=== PATIENT | female | born 1935 | race Caucasian/White ===

== ENCOUNTER 2017-04-05 09:55 | Emergency (ER) | payer MEDICARE, OTHER ==
[~2017-04-05] VITALS: Ht 162.6 cm; Wt 58.6 kg
[2017-04-05 10:03] VITALS: BP 164/78; PULSE 90; RESP 18; O2SAT 98
[2017-04-05] MEDS ORDERED: HYDROmorphone 0.5 mg/0.5 mL iSecure Syringe IVPUSH PRN (10:15)
[2017-04-05] MEDS ORDERED: Ondansetron 2 mg/mL 2 mL Inj IVPUSH ONE (10:15)
[2017-04-05] MEDS ORDERED: 0.9% Sodium Chloride 1,000 ML IV ONE (10:15)
--- NOTE | 2017-04-05 10:17 | ED.REPORT ---
HPI-General Illness Date of Service Apr 05, 2017 ED Provider: Kayden Barraza MD Pt is a generally healthy 81 y/o female w/ a hx of DM presenting to the ED with her daughter c/o intermittent diffuse abdominal pressure onset 1 month ago. She c/o associated mild nausea. There are no exacerbating or relieving factors. She has been constipated lately and has tried stool softeners and Miralax without relief. Pt denies vomiting, CP, SOB, GONG, fever, chills, focal weakness, dysuria , bloody stools, melena. The patient saw her PCP on 03/20 at which time she had a CT scan as below. She drinks very little alcohol. Pt denies drug use. 03/20/17 CT abd/pelvis interpretation as below: 1. No definite acute abnormality within the abdomen or pelvis. 2. Perirectal soft tissue thickening is concerning for anorectal proctitis. Please correlate clinically. No bowel obstruction. 3. Small hiatal hernia. 4. Hypodense lesion within the medial segment of the left hepatic lobe adjacent to the falciform ligament may represent a focal area of fatty infiltration. However, a hemangioma or other lesion cannot be completely excluded. Please consider a contrast enhanced MRI of the liver for better characterization. 5. Nonspecific prominence of the left ureter without a ureteral calculus or significant hydronephrosis. 6. Multilevel degenerative changes of the imaged spine and hips. Nursing Notes Stated Complaint: ABDOMINAL DISCOMFORT Chief Complaint: Female Abdominal Pain Nursing Notes Reviewed: Yes Allergies: Coded Allergies: codeine (Verified Allergy, Unknown, 01/27/14) Scheduled Ciprofloxacin (Cipro) 250 Mg Tablet 250 MG PO BID General Time Seen by MD: 10:14 Chief Complaint Abdominal pain Hx Obtained From: Patient Arrived By: Walk-in Sudden in Onset?: No Onset Occurred: More than a week ago... (1 month) Symptom Duration: Intermittent Location: : Abdomen Quality: Pressure Severity: Current: Moderate Severity: Maximum: Moderate Past Medical History Past Medical History Diabetes Past Surgical History Hysterectomy Cholecystectomy Smoking History Former Smoker Social History Alcohol Use: "Social" Drug Use: Denies drug use Ambulatory Status Independent Review of Systems Full Review of Systems Constitutional: Denies: Chills, Fever Respiratory: Denies: Non-productive cough, Shortness of breath Cardiovascular: Denies: Chest pain, Dyspnea on exertion GI: Reports: Abdominal pain, Constipation, Nausea, Denies: Bloody/tarry stool, Melena, Vomiting Neurologic: Denies: Headache Complete sys rev & neg: except as marked. Physical Exam Nursing note and vitals reviewed. Constitutional: Well-developed, well-nourished. Not diaphoretic. Well appearing. Head: Normocephalic and atraumatic. Mouth/Throat: Oropharynx is clear and moist. No oropharyngeal exudate. Eyes: EOM are normal. Pupils are equal, round, and reactive to light. Neck: Supple, no tracheal deviation. Cardiovascular: Normal rate, regular rhythm. Equal and intact distal pulses throughout. Pulmonary/Chest: Effort normal and breath sounds normal. No respiratory distress. Abdominal: Soft. No distension. There is no tenderness, rebound, or guarding. Bowel sounds present. Musculoskeletal: Range of motion grossly intact, moving all extremities. Neurological: AOx3. Grossly nonfocal exam. Strength and sensation intact and equal to bilateral upper and lower extremities. Skin: Warm and dry, no pallor appreciated. Psychiatric: Appropriate mood and affect. Behavior appears normal. Vital Signs Vital Signs Date Time Temp Pulse Resp B/P Pulse Ox O2 Delivery O2 Flow Rate FiO2 04/05/17 13:12 80 20 143/60 97 Room Air 04/05/17 12:27 80 20 136/51 97 Room Air 04/05/17 11:00 36 82 15 156/61 98 Room Air 04/05/17 10:03 36.6 90 18 164/78 98 Initial VS: Reviewed, Vital signs abnormal Interpretation & Diagnostics Lab Results Interpretation Result Diagram: 04/05/17 1015 04/05/17 1015 Test 04/05/17 10:15 04/05/17 11:38 White Blood Count 7.4th/mm3 (3.8-10.1) Red Blood Count 4.53mil/mm3 (3.90-5.20) Hemoglobin 13.7g/dL (12.0-15.6) Hematocrit 39.9% (35.0-46.0) Mean Corpuscular Volume 88.1fL (81-100) Mean Corpuscular Hemoglobin 30.2pg (27.0-35.0) Mean Corpuscular Hemoglobin Concent 34.3% (32.0-37.0) Red Cell Distribution Width 12.9% (12.3-15.4) Platelet Count 273bil/L (150-400) Neutrophils (%) (Auto) 68.2% (40-74) Lymphocytes (%) (Auto) 22.3% (14-46) Monocytes (%) (Auto) 7.8% (4-12) Eosinophils (%) (Auto) 0.9% (0-5) Basophils (%) (Auto) 0.7% (0-3) Prothrombin Time 10.4sec (8.1-12.5) Prothromb Time International Ratio 0.97ratio Sodium Level 136mEq/L (134-144) Potassium Level 4.0mEq/L (3.5-5.2) Chloride Level 100mEq/L (97-108) Carbon Dioxide Level 23mmol/L (18-29) Blood Urea Nitrogen 14mg/dL (8-27) Creatinine 0.59mg/dL (0.57-1.00) Estimat Glomerular Filtration Rate 139mL/min (>59) Glucose Level 153mg/dL (60-99) Lactic Acid Level 1.9mmol/L (0.4-2.0) Calcium Level 9.6mg/dL (8.5-10.1) Magnesium Level 1.8mg/dL (1.6-2.6) Total Bilirubin 0.3mg/dL (0.0-1.2) Aspartate Amino Transf (AST/SGOT) 16U/L (0-50) Alanine Aminotransferase (ALT/SGPT) 13U/L (0-32) Alkaline Phosphatase 54U/L (25-165) Total Protein 7.7g/dL (6.4-8.4) Albumin 4.3g/dL (3.4-5.0) Lipase 165U/L (13-60) Urine Color Straw (YELLOW) Urine Appearance Hazy (CLEAR,HAZY) Urine pH 5.0 (5.0-8.0) Urine Specific [place] 1.004 (1.003-1.035) Urine Protein Negativemg/dL (NEG,TRACE) Urine Glucose (UA) Negativemg/dL (NEGATIVE) Urine Ketones Negativemg/dL (NEGATIVE) Urine Occult Blood Trace (NEGATIVE) Urine Nitrite Negative (NEGATIVE) Urine Bilirubin Negative (NEGATIVE) Urine Urobilinogen Normalmg/dL (NORMAL) Urine Leukocyte Esterase Trace (NEGATIVE) Urine RBC 0-2/hpf (0-2) Urine WBC 6-10/hpf (0-5) Urine Epithelial Cells Few/hpf (NONE-MOD) Urine Crystals None seen (NONE SEEN) Urine Bacteria Few/hpf (NONE-FEW) Urine Hyaline Casts None/lpf (NONE) Urine Granular Casts None seen (NONE SEEN) Urine Waxy Casts None seen (NONE SEEN) Urine Red Blood Cell Casts None seen (NONE SEEN) Urine White Blood Cell Casts None seen (NONE SEEN) Urine Mucus None seen (None Seen) Urine Trichomonas None seen (NONE SEEN) Urine Yeast None (NONE SEEN) Urinalysis Comment None Urine Culture Reflexed Indicated ECG Interpretation ECG Interpretation: Sinus rhythm rate 81 LBBB No change from EKG in 2013 Time: 12:12 Interpreted by: ED physician CT Abd / Pelvis Interpretation IMPRESSION: 1. Minimal appearance of scattered small bowel thickening as above. Overall appearance is nonspecific and could be related to mild enteritis. 2. Decrease, yet persistent appearance of perirectal/anorectal soft tissue thickening, possibly related to improving infection/inflammation. Dictated by: Cate Cannon M.D. on 04/05/2017 at 12:32 Approved by: Cate Cannon M.D. on 04/05/2017 at 12:36 Study type: Abdominal CT IV contrast, Abdom CT oral contrast Interpretation / Wet Read by: Interpret - Radiologist Re-Eval/Medical Decision Med Decision/Clinical Course 81-year-old female presenting to the ED for evaluation of abdominal discomfort over the past month. She states that it was persistent and mildly worse today, so she decided to come into the emergency department. She is very well- appearing. A repeat CT scan was obtained today, which demonstrates some nonspecific scattered small bowel wall thickening that could be related to a mild enteritis, as well as an improving proctitis compared to previously. She has no abdominal tenderness whatsoever on exam. No distention. CBC and CMP grossly within normal limits with the exception of a lipase of 165. This is technically not greater than 3 times the normal limit that would suggest a significant pancreatitis that would require hospitalization, and the patient has no epigastric tenderness to palpation, nor any findings on CT scan to account for this. I discussed admission versus discharge home with very close return precautions and reevaluation tomorrow. Patient would like to opt for the latter. She does have what appears to be a mild urinary tract infection and I will treat this. Very careful return precautions were discussed and the patient was agreeable to the plan as stated, no further questions. Time of Eval: 13:03 Re-Evaluation/Progress Note: Pt rechecked. Discussed admission vs discharge. She chooses to be discharged. Pt understands and agrees with plan for discharge. F/U instructions and RTER warnings given. All questions addressed. Counseled Regarding: Diagnosis, Lab results, Need for follow-up, When/why to return to ED Discharge & Departure Primary Impression: Pancreatitis Chronicity: acute Pancreatitis type: unspecified pancreatitis type Acute pancreatitis complication: unspecified Qualified Code: K85.90 - Acute pancreatitis without necrosis or infection, unspecified Additional Impressions: Abdominal pressure Constipation Constipation type: unspecified constipation type Qualified Code: K59.00 - Constipation, unspecified UTI (urinary tract infection) Urinary tract infection type: site unspecified Hematuria presence: without hematuria Qualified Code: N39.0 - Urinary tract infection, site not specified Disposition: Home Discharge Condition All VS Reviewed: Yes Condition: Stable Patient Instructions: Pancreatitis (ED) Additional Instructions: Thank you for seeking care at the emergency room. It is difficult for us to make definitive diagnoses in the ED but we believe that you are experiencing abdominal discomfort which may be caused by mild pancreatitis or constipation. Our primary goal today in the Emergency Department was to evaluate you for any life-threatening conditions. Your evaluation was reassuring. However, as discussed, the blood marker for pancreatitis (lipase) was mildly elevated today. Since you have no pain on your exam and it's only mildly elevated, it seems reasonable to have you go home today, as we discussed. I would like you to follow up with your regular doctor tomorrow. As discussed with your regular doctor, it is ok to begin taking Miralax 3 times daily for now. You should follow-up with your primary doctor in the next day. You should return to the Emergency Department immediately if you develop worsening pain, fevers, vomiting, shortness of breath, chest pain, lightheadedness, dark or black stools, blood in the stool, weakness or any other concerning signs or symptoms. Thank you for letting us partake in your care today. Referrals: Driss Douglass MD (PCP) Scribe Attestation Portions of this note were transcribed by Dany Damon. I, Dr. Barraza personally performed the history, physical exam and medical decision-making; I reviewed and confirmed the accuracy of the information in the transcribed note. Signed by Niall Del Rio, 04/05/17 - 1200 copies to: Driss Douglass MD, William B MD Apr 05, 2017 10:17 DANY DAMON Apr 05, 2017 11:31
[2017-04-05 11:00] VITALS: BP 156/61; PULSE 82; RESP 15; O2SAT 98
[2017-04-05 11:06] LABS: BASOPHILS % (AUTO) 0.7 % (0-3); EOSINOPHILS % (AUTO) 0.9 % (0-5); MONOCYTES % (AUTO) 7.8 % (4-12); Mean Corpuscular Hemoglobin 30.2 pg (27.0-35.0); Mean Corpuscular Volume 88.1 fL (81-100); NEUTROPHILS % (AUTO) 68.2 % (40-74); Platelet Count 273 bil/L (150-400)
[2017-04-05 11:18] LABS: INR 0.97 ratio
[2017-04-05 11:28] LABS: Magnesium 1.8 mg/dL (1.6-2.6)
[2017-04-05 12:18] LABS: APPEARANCE,URINE HAZY (CLEAR,HAZY); COLOR,URINE STRAW (YELLOW); OCCULT BLOOD,URINE TRACE (NEGATIVE); UROBILINOGEN,URINE NORMAL (NORMAL)
[2017-04-05 12:27] VITALS: BP 136/51; PULSE 80; RESP 20; O2SAT 97
--- NOTE | 2017-04-05 12:38 | DRSVH ---
PROCEDURE: CT ABDOMEN AND PELVIS WITH CONTRAST ([id number]) INDICATIONS: worsening abd pain; eval change, other abnl TECHNIQUE: After the administration of oral and intravenous contrast, 5 mm thick sections acquired from the diap hragms to the symphysis. 5 mm thick coronal and sagittal reformats were performed. For radiation do se reduction, the following was used: automated exposure control, adjustment of mA and/or kV accordi ng to patient size. COMPARISON: [facility], CT, CT ABD PELVIS W CON, 03/20/2017, 11:21. FINDINGS: Image quality: Excellent. ABDOMEN: Lung bases: Lung bases are clear. Heart size is normal. Solid organs: Liver is mildly enlarged with steatosis. Previous identified hepatic focus of low atte nuation is unchanged. normal in size and enhancement. Gallbladder is not visualized. Biliary system is non-dilated. Pancreas enhances normally. No adrenal nodules. Kidneys are normal in size and en hancement, without hydronephrosis. Peritoneum and bowel: Stomach, small bowel, and colon loops are nonobstructed. There is minimal appe arance of scattered small bowel thickening, minimally more prominent when compared to prior exam. No free fluid or free air. The previously noted perirectal soft tissue thickening at the anal rectal reg ion remains prominent, although markedly decreased compared to prior exam. Nodes and vessels: No retroperitoneal or mesenteric adenopathy. Aorta and inferior vena cava are no rmal in caliber. Miscellaneous: No ventral hernias. PELVIS: Genitourinary: Bladder wall thickness is normal. Miscellaneous: No inguinal hernias or adenopathy. Bones: No suspicious bony lesions. No vertebral body compression fractures. IMPRESSION: 1. Minimal appearance of scattered small bowel thickening as above. Overall appearance is nonspecific and could be related to mild enteritis. 2. Decrease, yet persistent appearance of perirectal/anorectal soft tissue thickening, possibly relat ed to improving infection/inflammation. Dictated by: Cate Cannon M.D. on 04/05/2017 at 12:32 Approved by: Cate Cannon M.D. on 04/05/2017 at 12:36
[2017-04-05 13:12] VITALS: BP 143/60; PULSE 80; RESP 20; O2SAT 97
[2017-04-05] MEDS ORDERED: CIPR-232 PO (13:22)
== END 2017-04-05 13:19 | disposition home or self-care (01) ==
LOC: SED 09:55
DX: K85.90 Acute pancreatitis without necrosis or infection, unspecified (principal); K59.00 Constipation, unspecified; N39.0 Urinary tract infection, site not specified; E11.9 Type 2 diabetes mellitus without complications; Z87.891 Personal history of nicotine dependence; Z88.5 Allergy status to narcotic agent
CPT/HCPCS: 36415; 74177; 80053; 81000; 83605; 83690; 83735; 85025; 85610; 87086; 87088; 93005; 96360; 99285; J7030; Q9967

== ENCOUNTER 2017-05-05 07:00 | Day surgery (SDC) | payer MEDICARE, OTHER ==
[~2017-05-05] VITALS: Ht 157.5 cm; Wt 58.5 kg
[~2017-05-05 07:00] MED LIST: ASPI-973 PO; CHOL400T PO; DICY10CA56 PO; ESTR42.52 VAGINAL; LEVO50TA6 PO; Lactated Ringer's 1,000 ML IV ONE; METF500T4 PO; MULT-1018 PO; NYST15CR TP; OMEG500C PO; PROP10TA8 PO
[2017-05-05] MEDS ORDERED: Propofol 10,000 mCg/mL 20 mL Inj ONE (07:01)
[2017-05-05] MEDS ORDERED: fentaNYL-PF 50 mCg/mL 2 mL Inj ONE (07:01)
[2017-05-05] MEDS ORDERED: Lactated Ringer's 1,000 ML IV SCH (07:41)
[2017-05-05] MEDS ORDERED: Ondansetron 2 mg/mL 2 mL Inj IVPUSH PRN (07:45)
[2017-05-05] MEDS ORDERED: MetoCLOpramide 5 mg/mL 2 mL Inj IVPUSH PRN (07:45)
[2017-05-05 07:46] VITALS: BP 136/65; PULSE 73; RESP 15; O2SAT 96
--- NOTE | 2017-05-05 07:56 | PCM.HPANE ---
Patient Data Surgeon Admitting Provider: Attending Provider:Praveen Castillo MD Primary Care Physician:Driss Douglass MD Other Provider:Paulette Guilleningham Anesthesia Reason for Visit Abdnoraml Abdominal Ct, Epigastric Pain Ht/WT & BMI Body Mass Index Allergies Coded Allergies: codeine (Verified Allergy, Intermediate, Nausea, 05/05/17) Past Anesthesia History Anesthesia History: Denies:: Abnormal Airway, Anesthesia Reactions, Difficult Intubation, Fam Anesthesia Reaction, Fam Malignant Hypertherm, Malignant Hyperthermia Diabetes History Hx Diabetes?: Yes (NIDDM) Medications Reported Medications Cholecalciferol (Vitamin D3) (Vitamin D3)400 Unit Eftlxp209 Unit PO BID 05/01/17 Propranolol HCl 10 Mg Pttcsf78 Mg PO DAILY 90 Days Ref 0 05/01/17 Nystatin/Triamcin (Nystatin-Triamcinolone Cream)15 Gm Cream..g.15 Gm TP BID 05/01/17 Multivitamin (Multi Vitamin Daily)1 Each Tablet1 Each PO DAILY 30 Days Ref 0 05/01/17 Metformin 500 Mg Niaixc683 Mg PO BID Ref 0 05/01/17 [place]-3 Fatty Acids (Fish Oil)500 Mg Capsule.dr500 Mg PO BID 05/01/17 Estradiol (Estrace)42.5 Gm Cream.appl1 G VAGINAL UD #1 TUBE Ref 0 05/01/17 Aspirin 81 Mg Hknujy86 Mg PO DAILY Ref 0 05/01/17 Discontinued Reported Medications Levothyroxine 50 Mcg Yzfsil51 Mcg PO DAILY Ref 0 05/01/17 Dicyclomine (Bentyl)10 Mg Twdpkvi83 Mg PO TID 05/01/17 Metformin 850 Mg Yztbsf429 Mg PO BID Ref 0 05/01/17 Discontinued Scripts Ciprofloxacin (Cipro)250 Mg Ghidst131 Mg PO BID #6 TABLET Ref 0 Prov:Kayden Barraza MD 04/05/17 History History of ENT Problems?: No HEENT History: Denies:: Abnormal Airway Cataracts Difficult Intubation Dysphagia Glaucoma Hearing Problem Sinus Problem TMJ Denture Type: None Teeth Condition: Within Normal Limits Hx of Heart Problems?: No Cardiovascular History: Denies:: Congestive Heart Failure Hx of Respiratory Problem?: No Respiratory History: Denies:: Tuberculosis Hx Neurologic Problems?: No Hx of GI Problems?: Yes Hx of Problems?: No Hx Musculoskeletal Problems?: No Hx of Psycho/Social Problems?: No Hx Surgeries?: Yes Hx Any Other Health Problems?: No Hx Diabetes: Yes (NIDDM) Hx Alcohol Use: NoHx Substance Use: No Smoking Status: Former Smoker Have You Smoked inLast 12 mo: No Stop/Bang Risk Assessment Category Category 1A: Patient has history of documented sleep apnea, and HAS NOT received any narcotic, sedative or anesthesia administration during this stay. Category 1B: Patient has history of documented sleep apnea, and HAS received any narcotic , sedative or anesthesia administration during this stay Category 2: Patient has SUSPECTED Obstructive Sleep Apnea, and HAS received any narcotic , sedative or anesthesia administration during this stay. Category 3: Patient has SUSPECTED Obstructive Sleep Apnea and HAS NOT received narcotic, sedative or anesthesia administration during this stay. Category 4: Outpatient in Procedural Areas with known sleep apnea or who screen positive for High Risk via the STOP/BANG questionnaire. Exam Exam General Appearance: Alert HEENT/AIRWAY: MP 2, Neck Movement (from, 3 fb) Lungs: Clear to Auscultation Heart: Regular Rate/Rhythm Plan Impression Patient chart reviewed, patient interviewed and anesthestic plan with risks, benefits, and alternatives discussed, and informed consent obtained. NPO per Anesth. Guidelines: Yes ASA Physical Status: ASA2 Mod Systemic Disease Anesthetic Plan: MAC Bene/Risks/Altern/Consents: Yes HP Complete Prior to Induction: Yes Emerson Hua MD May 05, 2017 07:41
[2017-05-05 08:28] VITALS: BP 88/43; PULSE 65; RESP 16; O2SAT 99
--- NOTE | 2017-05-05 08:35 | PCM.ANEP1 ---
Post Anesthesia PACU Phase 1 Assessment Vital Signs Vital Signs Date Time Temp Pulse Resp B/P Pulse Ox O2 Delivery O2 Flow Rate FiO2 05/05/17 08:28 65 16 88/43 99 Room Air 05/05/17 07:46 37 73 15 136/65 96 Room Air Anesthetic Administered: MAC Level of Alertness: Awake, talking IBRAHIM's with Equal Strength: Yes Pain: No Nausea or Vomiting: No CV Function & Hydration Stable: Yes Airway Device: Oxygen Delivery: Nasal Cannula Lungs: Clear to Auscultation Dermatome Level: Full Sensation PACU Phase 2 Assessment Complications: No Follow up Care: N/A Patient Instructions Provided: N/A Emerson Hua MD May 05, 2017 08:35
[2017-05-05 08:38] VITALS: BP 121/65; PULSE 77; RESP 16; O2SAT 95
--- NOTE | 2017-05-05 08:47 | ENDO ---
[address] [address] ENDOSCOPY PROCEDURE PATIENT: BRONWYN PLUMMER : 1935 MR#: [id number] ADMIT: 05/05/2017 JOB ID: [id number] DATE OF SERVICE: 05/05/2017 TYPE OF OPERATION: 1. Esophagogastroduodenoscopy with biopsy. 2. Colonoscopy with biopsy. PREOPERATIVE DIAGNOSES: 1. Abdominal pain. 2. Abnormal CT scan. POSTOPERATIVE DIAGNOSES: 1. Mild bile reflux. 2. Mild nonerosive gastritis. 3. Normal colonoscopy, status post biopsy. ANESTHESIA: Monitored anesthesia care. COMPLICATIONS: None. BLOOD LOSS: Minimal. DESCRIPTION OF PROCEDURE: After risks and benefits were explained to the patient, informed consent was obtained. After anesthesia administered, an upper endoscope was then inserted into the mouth and intubated through esophagus, stomach and second portion of the duodenum, and mucosa carefully examined. After the procedure was done, the scope was withdrawn and the procedure terminated. Colonoscope was then inserted from rectum to the terminal mucosa and mucosa carefully examined. Prep of the patient was fair. After procedure was done, the scope withdrawn and the procedure terminated. FINDINGS: Upon inspection of the esophagus, the esophagus was normal without masses, ulcers, or lesions. Z-line located 35 cm from incisors. Upon entering stomach, there was mild bile reflux. Mild nonerosive gastritis. Retroflexion was normal. Duodenal bulb, first and second portions normal. Biopsies taken of the duodenum, antrum and body of the stomach. Upon inspection of the anus, no masses, hemorrhoids, ulcers, or fissures that were seen. Throughout the entire examination, there were no polyps, masses, or lesions. Biopsies were taken of the rectum due to abnormal CT scan. Retroflexion was normal. IMPRESSION: 1. Normal colonoscopy. 2. Mild bile reflux. 3. Mild nonerosive gastritis. RECOMMENDATION: Await pathology results. Follow up in GI clinic as needed.
[2017-05-05 08:48] VITALS: BP 131/63; PULSE 68; RESP 16; O2SAT 98
[2017-05-06] MEDS ORDERED: Lactated Ringer's 1,000 ML IV ONE (06:00)
--- NOTE | 2017-05-06 16:43 | PATH ---
SURGICAL PATHOLOGY Attending Physician:Praveen Castillo MD CASE STATUS: Signed Out PATIENT NAME: BRONWYN PLUMMER PID: [id number] : 1935 DATE COLLECTED:05/05/2017 15:20 SPECIMEN: 1: Duodenum, Biopsy 2: Stomach, Antrum, Biopsy 3: Gastric, Biopsy 4: Rectum, Biopsy CLINICAL HISTORY: 1). DUODENAL BIOPSY (RULE OUT H.PYLORI) 2). ANTRUM BIOPSY (RULE OUT H.PYLORI) 3). GASTRIC BODY BIOPSY (RULE OUT H.PYLORI) 4). RECTUM BIOPSY FINAL DIAGNOSIS: 1. Duodenum, Biopsy: Duodenal mucosa with very focal active inflammation, nonspecific. Negative for features of sprue, dysplasia, and malignancy. 2. Gastric Antrum, Biopsy: Portions of gastric antral and body-type mucosa with mild chronic gastritis. No H. pylori organisms identified by H&E stain. Immunohistochemistry studies pending; results will be reported as an addendum. Negative for intestinal metaplasia, dysplasia, and malignancy. 3. Gastric Body, Biopsy: Portions of gastric body-type mucosa with mild chronic gastritis. No H. pylori organisms identified by H&E stain. Immunohistochemistry studies pending; results will be reported as an addendum. Possible, very focal intestinal metaplasia; negative for dysplasia and malignancy. 4. Rectum, Biopsy: Superficial portions of colorectal mucosa with mild crypt architectural distortion and a lymphoid aggregate. Negative for active inflammation, dysplasia and malignancy. ICD10: K29.7 GROSS DESCRIPTION: The specimen is received in four formalin filled containers labeled with the patient's name. 1). The specimen is filled labeled "duodenal" and consists of 2 portions of tissue which aggregate to 0.3 x 0.3 x 0.2 CM. The specimen is entirely submitted in cassette 1A. 2). The specimen is labeled "antrum" and consists of 2 portions of tissue which aggregate to 0.3 x 0.2 x 0.2 CM. The specimen is entirely submitted in cassette 2A. 3). The specimen is labeled "gastric body" and consists of 2 portions of tissue which aggregate to 0.3 x 0.3 x 0.2 CM. The specimen is entirely submitted in cassette 3A. 4). The specimen is labeled "rectal" and consists of a 0.2 x 0.2 x 0.2 CM portion of tissue which is entirely submitted in cassette 4A. 05/05/2017[place] ICD-9 CODES: CPT CODES: 1: 73697, 97248 2: 86042, 43029 3: 99731, 22174 4: 51871 PROCEDURE/ADDENDA: Addendum SPI Addendum Diagnosis Result: 2. Gastric Antrum: Negative for Helicobacter pylori by immunohistochemical staining. 3. Gastric Body Biopsy: Negative for Helicobacter pylori by immunohistochemical staining. Addendum Comment * This test was developed and its performance characteristics determined by [facility]. It has not been cleared or approved by the U.S. Food and Drug Administration. The FDA has determined that such clearance or approval is not necessary. This test is used for clinical purposes. It should not be regarded as investigational or for research. Electronically Signed Out Steph Heath MD Electronically Signed Out Yanira Sanchez MD [facility] Pathology [facility] [place] [address] Technical component performed at [facility], [facility] [address], [place], [address]
== END 2017-05-05 23:59 | disposition home or self-care (01) ==
LOC: END 07:00
PROVIDERS: ATTEND Internal Medicine Gastroenterology
DX: R93.5 Abnormal findings on diagnostic imaging of other abdominal regions, including retroperitoneum (principal); R10.13 Epigastric pain; K29.50 Unspecified chronic gastritis without bleeding; K21.9 Gastro-esophageal reflux disease without esophagitis; Z79.82 Long term (current) use of aspirin; Z79.899 Other long term (current) drug therapy; Z88.5 Allergy status to narcotic agent; Z87.891 Personal history of nicotine dependence
CPT/HCPCS: 43239; 45380; J2704; J3010; J7120